=== PATIENT | male | born 1975 | race Caucasian/White ===

== ENCOUNTER → 2021-10-22 | Outpatient (CLI) | payer BC ==
[~2021-10-22] MED LIST: LEVO137C4 PO; LISI20TA26 PO
== END | disposition home or self-care (01) ==
LOC: PREOP 14:35
PROVIDERS: ATTEND Internal Medicine
DX: Z01.818 Encounter for other preprocedural examination (principal)

== ENCOUNTER 2021-10-26 09:53 | Day surgery (SDC) | payer BC ==
--- NOTE | 2021-10-24 08:33 | HISTORY AND PHYSICAL ---
DATE OF SERVICE: COLONOSCOPY HISTORY AND PHYSICAL DATE OF ADMISSION: . HISTORY OF PRESENT ILLNESS: The patient is a 46-year-old white male being referred for his first screening colonoscopy by Dr. Brady. He is likely of average risk as he is not aware of any family history for colon cancer. He only, however, he knows his father's side of the family, does not know anything about mother's family history. He occasionally has some gas and bloating after meals without significant pain or bowel habit change. He has noted no bright red blood per rectum or melena and denies any change in weight. 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 PAST SURGICAL HISTORY: He reports no past surgeries. 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 He reports occasional social alcohol intake. FAMILY HISTORY: As noted in the HPI. REVIEW OF SYSTEMS: CONSTITUTIONAL: Denies night sweats, chills, fever or change in weight. GASTROINTESTINAL: As noted in the HPI. CARDIAC: Denies orthopnea, PND, pedal edema or chest discomfort. PULMONARY: Denies cough, wheezing or shortness of breath. PHYSICAL EXAMINATION: GENERAL: Reveals a pleasant white male, overweight, in no acute distress. VITAL SIGNS: Weight 218 pounds. Blood pressure 156/92. HEENT: Unremarkable. Sclerae nonicteric. CHEST: Clear to auscultation. CARDIOVASCULAR: Reveals regular rate and rhythm without murmur, S3 or S4. ABDOMEN: Soft, supple without mass, organomegaly or tenderness. Bowel sounds positive. No bruits noted. EXTREMITIES: Reveal no cyanosis, clubbing or edema. ASSESSMENT AND PLAN: The patient is being set up for his first screening colonoscopy. Prep instructions were given and questions were answered. I thank you for the referral of this pleasant gentleman. Job ID: [id number] DocumentID: [id number] Dictated Date: 10/23/2021 11:20:23 Assistant Manager Quality Management Date: 10/23/2021 11:30:46 Dictated By: JONI RAMIRES MD
[~2021-10-26] VITALS: Ht 177.8 cm; Wt 98.9 kg
[2021-10-26] MEDS ORDERED: LACTATED RINGERS 1,000 ML IV STA (10:00)
[2021-10-26 10:20] VITALS: BP 163/101
[2021-10-26] MEDS ORDERED: PROPOFOL INJECTION 50 ML IV ONE (10:58)
[2021-10-26] MEDS ORDERED: MIDAZOLAM 2 MG/2 ML (VERSED) VIAL ONE (11:01)
--- NOTE | 2021-10-26 11:02 | Pre-Op Note & Conscious Sedat ---
Pre-Operative Progress Note H&P Reviewed The H&P was reviewed, patient examined and no changes noted. Date H&P Reviewed: October 26, 2021 Time H&P Reviewed: 10:30 Conscious Sedation Pre-Proced ASA Score 2 For ASA 3 and 4: Consider anesthesia and medical clearance. Also, for patients with a history of failed moderate sedation consider anesthesia. Airway Lungs Heart ASA score ASA 1: a normal healthy patient ASA 2: a patient with a mild systemic disease (mid diabetes, controlled hypertension, obesity ASA 3: a patient with a severe systemic disease that limits activity (angina, COPD, prior Myocardial infarction) ASA 4: a patient with an incapacitating disease that is a constant threat to life (CHF, renal failure) ASA 5: a moribund patient not expected to survive 24 hrs. (ruptured aneurysm) ASA 6: a declared brain- patient whose organs are being harvested. For emergent operations, add the letter E after the classification Mallampati Classification Grade 2 Sedation Plan Analgesia, Amnesia, Plan communicated to team members, Discussed options with patient/fam, Discussed risks with patient/fam The patient is an appropriate candidate to undergo the planned procedure, sedation, and anesthesia. The patient immediately re-assessed prior to indication. JONI RAMIRES MD October 26, 2021 11:02
[2021-10-26 11:30] VITALS: BP 79/47
[2021-10-26 11:35] VITALS: BP 123/69
[2021-10-26 11:48] VITALS: BP 132/74
[2021-10-26 11:52] VITALS: BP 132/74
--- NOTE | 2021-10-26 13:17 | Anesthesia-General Post-Op ---
MAC Patient Condition Mental Status/LOC: Same as Preop Cardiovascular: Satisfactory Nausea/Vomiting: Absent Respiratory: Satisfactory Pain: Controlled Complications: Absent Post Op Complications Complications None Follow Up Care/Instructions Patient Instructions None needed. Anesthesiology Discharge Order Discharge Order Patient is doing well, no complaints, stable vital signs, no apparent adverse anesthesia problems. No complications reported per nursing. AMI RESENDIZ CRNA October 26, 2021 13:17
--- NOTE | 2021-10-26 21:00 | OPERATIVE REPORT ---
DATE OF SERVICE: COLONOSCOPY SUMMARY INDICATION FOR THE PROCEDURE: Screening colonoscopy. The patient was placed in the left lateral decubitus position. Prior to undergoing colonoscopy, digital rectal evaluation was performed. Anal sphincter tone was normal and the perianal reflexes intact. The prostate was unremarkable to digital inspection, normal in size. No abnormalities were noted on digital inspection of anal canal or distal rectal vault. The colonoscope was then inserted into the rectum and under direct visualization advanced to cecum. The cecum was identified by the identification of ileocecal valve and cecal strap. Photographic documentation was obtained. Quality of prep was good except for the cecum where there was a small amount of retained stool. Photograph was obtained. Careful inspection was made on colonoscope withdrawal. There was no evidence for internal or external hemorrhoids and the rectum was unremarkable. Present in the distal sigmoid colon was a questionable sessile polyp that was photographed and biopsied and ablated with no subsequent blood loss. The remainder of the sigmoid colon, descending colon, splenic flexure, transverse colon, hepatic flexure, ascending colon and cecum were unremarkable with a small amount of the cecum not well visualized due to some retained stool. No evidence for diverticular disease was noted. ASSESSMENT: 1. Unremarkable digital evaluation of the prostate. 2. Sessile distal sigmoid polyp was removed via hot forceps with no subsequent blood loss. As long as there is no surprise on histopathology report, would advocate consideration for repeat screening colonoscopy in 10 years. No other abnormalities noted on today's procedure. Job ID: [id number] DocumentID: [id number] Dictated Date: 10/26/2021 11:27:55 Rn Team Leader Date: 10/26/2021 20:59:56 Dictated By: JONI RAMIRES MD
== END 2021-10-26 12:05 | disposition home or self-care (01) ==
LOC: ENDO 09:53
PROVIDERS: ATTEND Internal Medicine
DX: Z12.11 Encounter for screening for malignant neoplasm of colon (principal); K51.40 Inflammatory polyps of colon without complications; E66.9 Obesity, unspecified; F17.210 Nicotine dependence, cigarettes, uncomplicated